=== PATIENT | female | born 1950 | race Caucasian/White ===

== ENCOUNTER → 2016-11-30 | Day surgery (SDC) | payer MEDICARE ==
[~2016-11-30] MED LIST: ATROPINE SULFATE 1% OPHT SOLN 2 ML BTL ONE; DEXAMETHASONE SOD PHOS 4 MG/ML VIAL ONE; EPINEPHrine HCL (1:1000) 1 MG/ML VIAL ONE; FLURBIPROFEN 0.03% OPHT SOLN 2.5 ML BTL ONE; LACTATED RINGER'S 1000 ML INJ 1,000 ML ONE; LIDOCAINE HCL 4% PF 5 ML AMP ONE; MIDAZOLAM HCL 2 MG/2 ML VIAL ONE; NAPR220T95 PO; NEOMYCIN/POLYMYXIN/DEXAMETHASONE OPTH OINT 3.5 GM TUBE ONE; ONDANSETRON HCL 4 MG/2 ML VIAL IV PUSH ONE; PHENYLEPHRINE HCL 2.5 % OPTH SOLN 15 ML BTL ONE; PROPOFOL 200 MG/20 ML AMP IV ONE; SODIUM CHLORIDE 0.9% INJ 10 ML ONE; TROPICAMIDE 1% OPHT SOLN 15 ML BTL ONE; ceFAZolin INJ 1,000 MG VIAL ONE
--- NOTE | 2016-12-08 14:23 | TN ---
cc: ROLANDO CARTAGENA MD DATE OF SURGERY 11/30/2016 DATE OF 1950 PREOPERATIVE DIAGNOSIS Previous retinal detachment and epiretinal membrane left eye. POSTOPERATIVE DIAGNOSIS Previous retinal detachment and epiretinal membrane left eye. PROCEDURE PERFORMED Pars plana vitrectomy, membrane pealing, silicone oil removal left eye. ANESTHESIA MAC SURGEON Rolando Cartagena MD COMPLICATIONS None PROCEDURE IN DETAIL After informed consent was obtained, the patient brought to the operating room, placed, under brief anesthesia of propofol, prepped and draped in the usual sterile fashion. A wire eyelid speculum was placed in the patient's left eye. 23 gauge vitrectomy cannulas were then placed, one lower temporal, supratemporal and supranasal quadrants 3 mm posterior to the corneal scleral limbus. Infusion cannula was placed lower temporally. The patient had a previous vitrectomy with some of the residual vitreous, at the vitreous space was excised using the vitreous cutter. Posteriorly either the internal limiting membrane or an epiretinal membrane was stained with ICG dye over the surface of the macula. This was then carefully peeled from around the macula hole. Careful indirect ophthalmoscopy with scleral depression was then performed. No peripheral breaks were noted. A complete air-fluid was then performed. The silicone oil gas then used to fill the vitreous cavity. The three vitrectomy cannulas were then removed. Each site was closed with interrupted 7-0 Vicryl suture. Subconjunctival injections of Dexamethasone and Ancef were placed. Atropine drops. Maxitrol ointment and patch and shield were then applied. The patient tolerated the procedure well. There were no complications. She will followup tomorrow in our [place] office. ADDENDUM There was a dense epiretinal membrane on the surface of the macula creating traction and this was carefully pealed off with intraocular forceps and then the same was done for the internal limiting membrane. She will follow up tomorrow in our [place] office. Rolando Cartagena MD TAB/DJL /6:44 PM /2:10 PM
== END | disposition home or self-care (01) ==
LOC: ESDC 12:52
PROVIDERS: ATTEND Ophthalmology Retina Specialist
DX: H33.002 Unspecified retinal detachment with retinal break, left eye (principal); H35.372 Puckering of macula, left eye
CPT/HCPCS: 00145; 67042; J0171; J0690; J1100; J2250; J2405; J3010; J7120

== ENCOUNTER 2017-05-30 12:42 | Day surgery (SDC) | payer MEDICARE ==
[~2017-05-30 12:42] MED LIST changes: -ATROPINE SULFATE 1% OPHT SOLN 2 ML BTL ONE; -DEXAMETHASONE SOD PHOS 4 MG/ML VIAL ONE; -EPINEPHrine HCL (1:1000) 1 MG/ML VIAL ONE; -FLURBIPROFEN 0.03% OPHT SOLN 2.5 ML BTL ONE; -LACTATED RINGER'S 1000 ML INJ 1,000 ML ONE; -LIDOCAINE HCL 4% PF 5 ML AMP ONE; -MIDAZOLAM HCL 2 MG/2 ML VIAL ONE; -NEOMYCIN/POLYMYXIN/DEXAMETHASONE OPTH OINT 3.5 GM TUBE ONE; -ONDANSETRON HCL 4 MG/2 ML VIAL IV PUSH ONE; -PHENYLEPHRINE HCL 2.5 % OPTH SOLN 15 ML BTL ONE; -PROPOFOL 200 MG/20 ML AMP IV ONE; -SODIUM CHLORIDE 0.9% INJ 10 ML ONE; -TROPICAMIDE 1% OPHT SOLN 15 ML BTL ONE; -ceFAZolin INJ 1,000 MG VIAL ONE
[2017-05-30 13:40] VITALS: BP 130/73; PULSE 79; RESP 14; TEMP 98; O2SAT 97
[2017-05-30 14:25] VITALS: BP 139/72; PULSE 72; RESP 20; TEMP 98.1; O2SAT 99
[2017-05-30 14:40] VITALS: BP 137/74; PULSE 69; RESP 16; O2SAT 97
--- NOTE | 2017-05-30 14:54 | RADRPT ---
EXAM DATE/TIME: 05/30/2017 13:28 [place] COMPARISON: No previous studies available for comparison. EXTERNAL COMPARISON: [facility], US THYROID , Apr 06 2017. INDICATIONS : Right thyroid masses. MEDICAL HISTORY : . Pancreatitis. Left detached retina. Anxiety. SURGICAL HISTORY : Cholecystectomy Left eye surgery x 3. Bilateral cataract removal. Bilateraly knee replacement. ENCOUNTER: Initial ACUITY: 2 months PAIN SCORE: 1/10 LOCATION: Right neck ORGAN: Right thyroid lobe SPECIMENS: Seven fine needle aspirate(s) submitted for pathologic evaluation. DEVICE: 18 gauge needle Post procedure scanning reveals no hematoma or other complication. The possibility does exist that the tissue obtained will be non-diagnostic. If the sample is non-cristian gnostic a repeat biopsy or surgical biopsy may need to be performed. TECHNIQUE: 1. Ultrasound guidance for needle biopsy. 2. Needle biopsy. The risks, benefits and alternatives to the procedure were explained and verbal and written consent w as obtained. The site was prepped in sterile fashion. Full sterile technique was used, including ca p, mask, sterile gloves and gown and a large sterile sheet. Hand hygiene and 2% chlorhexidine and/or betadine/alcohol prep was utilized per protocol for cutaneous antisepsis. The skin and subcutaneous tissues were infiltrated with local anesthetic solution. Sterile gel and sterile probe cover were u tilized for ultrasound guidance. With the patient on the ultrasound table, images were obtained. A needle was advanced into the identified target and the number of specimens as above obtained and montgomery bmitted for pathologic evaluation. The patient tolerated the procedure well and left the ultrasound suite in stable condition. CONCLUSION: Uncomplicated ultrasound guided needle biopsy. Jaime Tian MD on May 30, 2017 at 14:50 Board Certified Radiologist. This report was verified electronically.
== END 2017-05-30 14:50 | disposition home or self-care (01) ==
LOC: HRAD 12:42 → HRIP 12:52 → HRAD 14:50
PROVIDERS: ATTEND Otolaryngology Otolaryngology/Facial Plastic Surgery
DX: E04.2 Nontoxic multinodular goiter (principal)
CPT/HCPCS: 10022; 76942; 88172; 88173; C1729